=== PATIENT | female | born 1980 | race Caucasian/White ===

== ENCOUNTER → 2017-03-28 | Outpatient (CLI) | payer OTHER ==
--- NOTE | 2017-03-28 08:06 | US ---
EXAMINATION TYPE: US OB <=14 wks transvag DATE OF EXAM: 03/28/2017 COMPARISON: NONE CLINICAL HISTORY: 36-year-old female Z36 Confirm dates. Date of LMP: 01/24/17 Beta HcG (if available): unavailable EXAM PERFORMED: Transvaginal (TV) and Transabdominal (TA) FINDINGS: EXAM MEASUREMENTS: GESTATIONAL AGE / DATING Physician Established: not established Dates by LMP: (9 weeks/0 days) EDC: 10/31/17 Dates by First Scan: no prior scan Dates by Current Scan for: (8 weeks/4 days +/- 5 days) Unable to detect heart tones at this t christopher EDC: 11/03/17 MATERNAL ANATOMY Uterus: 12.8 x 6.6 x 8.5cm with cervical nabothian cysts. Heterogeneous, small cystic areas along the inferior margin of the gestational sac within the endometrium. Also, there is a 1.9 cm hypoechoic ar ea along the right paramedian anterior fundus/body that is intramural and partially subserosal. Right Ovary: 4.2 x 2.7 x 2.2cm Left Ovary: 2.6 x 1.5 x 2.3cm Post CDS / Adnexa: wnl Presence of free fluid: no Presence of corpus luteal cyst: yes, right ovary = 2.4 x 1.9 x 2.3cm GESTATION / SURVEY CRL: 2.0cm (8 weeks/4 days) Yolk Sac (normal less than 6mm): 0.3cm Heart Rate: unable to detect heart tones at this time [employer] NOTES: Unable to detect heart tones at this time. Multiple cystic areas noted withi n endometrium. Hypoechoic area anterior uterus = 2.0 x 1.5 x 1.6cm ?possible fibroid. Probable corpus luteum right ovary. IMPRESSION: 1. Intrauterine with crown rump length placing the gestation at 8 weeks 4 days, smaller as compared to dates by LMP. No heart tones are detected. Findings are worrisome for demise. Karl borate with downtrending beta-hCG. 2. Heterogeneous area inferior to the gestational sac with small cystic changes. Findings likely repr esent sequela of a perigestational bleed. Correlate with beta hCG levels to exclude the less likely p ossibility of partial molar . 3. Incidental intramural and partially subserosal 1.9 cm anterior fibroid.
== END ==
LOC: RADUSWWP 07:01
PROVIDERS: ATTEND Obstetrics & Gynecology
DX: Z36 Encounter for antenatal screening of mother (principal); Z3A.08 8 weeks gestation of pregnancy
CPT/HCPCS: 76801; 76817

== ENCOUNTER → 2017-04-02 | Outpatient (CLI) | payer OTHER ==
[2017-04-02 11:10] LABS: Basophils % (A) 0 %; CHCM 34.3; Eosinophils % (A) 1 %; HCT 40.9 % (34.0-46.0); HDW 2.37; HGB 13.6 gm/dL (11.4-16.0); Luc # (Auto) 0.11; Luc % (Auto) 1; Lymphocytes # (A) 1.2 k/uL (1.0-4.8); Lymphocytes % (A) 15 %; MCH 31.1 pg (25.0-35.0); MCHC 33.2 g/dL (31.0-37.0); MCV 93.7 fL (80.0-100.0); Mean Platelet Volume 7.6; Monocytes # (A) 0.4 k/uL (0-1.0); Monocytes % (A) 5 %; Neutrophils # (A) 6.4 k/uL (1.3-7.7); Neutrophils % (A) 78 %; RBC 4.37 m/uL (3.80-5.40); RDW 13.1 % (11.5-15.5); WBC 8.2 k/uL (3.8-10.6); WBC (Perox) 8.31
== END | disposition home or self-care (01) ==
LOC: LABPAT 10:33
PROVIDERS: ATTEND Obstetrics & Gynecology
DX: Z01.812 Encounter for preprocedural laboratory examination (principal)
CPT/HCPCS: 85025

== ENCOUNTER 2017-04-04 06:04 | Day surgery (SDC) | payer OTHER ==
[2017-04-03 08:49] VITALS: BMI 30.2
--- NOTE | 2017-04-03 12:49 | P.HPOB ---
History of Present Illness H&P Date: 04/03/17 Chief Complaint: Missed This patient is a pleasant 36-year-old 2 para 1 female who initially saw me on March 19 for care. Patient was scheduled for an ultrasound for viability and unfortunately it showed a 8 and half week nonviable consistent with a missed . There is also some questionable areas of cystic findings on the ultrasound which the radiologist stated could have some findings of a molar . She now presents for suction D&C for treatment. Patient has not been having any pain or bleeding. Review of Systems Constitutional: Denies chills, Denies fever Cardiovascular: Denies chest pain, Denies shortness of breath Respiratory: Denies cough Gastrointestinal: Denies abdominal pain, Denies diarrhea, Denies nausea, Denies vomiting Genitourinary: Reports Menstruation: Reports amenorrhea Musculoskeletal: Denies myalgias Past Medical History Past Medical History: Deep Vein Thrombosis (DVT), GERD/Reflux, Pulmonary Embolus (PE) Additional Past Medical History / Comment(s): PE in 2006,IBS History of Any Multi-Drug Resistant Organisms: None Reported Past Surgical History: Cholecystectomy Past Anesthesia/Blood Transfusion Reactions: No Reported Reaction Smoking Status: Former smoker - Past Family History Mother Family Medical History: No Reported History Father Family Medical History: Deep Vein Thrombosis (DVT) Medications and Allergies Allergies Allergy/AdvReac Type Severity Reaction Status Date / Time adhesive tape AdvReac Itching Verified 04/03/17 08:22 codeine AdvReac Rash/Hives Verified 04/03/17 08:23 Exam - Vital Signs Vital signs: Intake and Output 04/02/17 04/03/17 04/03/17 22:59 06:59 14:59 Other: Weight 95.708 kg Patient Weight 04/04/17 06:59 Weight 95.708 kg - OBG Physical Exam Abdomen: bowel sounds normal, no diffuse tenderness, no bruit present, no guarding noted, no hepatomegaly, no splenomegaly, no mass Vulva: both: normal Vagina: normal moisture, no discharge Cervix: no lesion, no discharge Uterus: enlarged (Uterus is approximately 8 weeks size.) Results Transvaginal ultrasound shows an 8-1/2 week intrauterine with no cardiac activity and questionable cystic areas. This is consistent with a missed . Assessment and Plan (1) Missed Narrative/Plan: This is a pleasant 36-year-old 2 para 1 female being half weeks gestation with missed and questionable cystic areas on ultrasound but cannot rule out molar . Patient I discussed options including expectant management versus suction D&C and at this point wishes to proceed with D&C for treatment. Patient does understand the surgery and risks including risks of infection, bleeding, possible uterine perforation. She understands she is at increased risk of bleeding if this were to be a molar . Patient does have a significant past medical history of a pulmonary embolism at 29 weeks with her first . Plan is to do a suction D&C in early ambulation. Because of the rare possibility of a molar I do not think blood thinners are appropriate and this patient . Status: Acute
[~2017-04-04 06:04] MED LIST: DEXAMETHASONE SOD PHOSPHATE 10 MG/ML 1 ML VIAL IV ONE; LIDOCAINE 1% 20 ML VIAL (10MG/ML) FOR IV START INTRADERMA PRN; Pre Op ABX Message 1 EACH MISC MISCELLANE ONE; SCOPOLAMINE 1.5MG/72HR PATCH TRANSDERM ONE
[2017-04-04] MEDS: LACTATED RINGERS 1,000 ML IV SCH ×2 (06:21→06:51)
[2017-04-04] MEDS: ONDANSETRON 4 MG/2 ML VIAL IVP ONE ×2 (06:22→07:48)
[2017-04-04] MEDS ORDERED: LIDOCAINE 1% 20 ML VIAL (10MG/ML) FOR IV START INTRADERMA ONE (06:22)
[2017-04-04] MEDS ORDERED: LIDOCAINE 1% INJ 10MG/ML (20 ML MDV) ONE (06:54)
[2017-04-04] MEDS ORDERED: MIDAZOLAM 2 MG/2 ML VIAL ONE (06:54)
[2017-04-04] MEDS ORDERED: PROPOFOL 10 MG/ML 20 ML VIAL IV ONE (06:54)
[2017-04-04] MEDS ORDERED: SUCCINYLCHOLINE CHLORIDE 100 MG/5 ML SYR IV ONE (06:54)
[2017-04-04] MEDS ORDERED: fentaNYL (PF) 50 MCG/ML 2 ML AMP ONE (06:54)
[2017-04-04] MEDS ORDERED: Rhogam IMMUNE GLOBULIN 1,500 UNIT/1 ML IM ONE (07:27)
--- NOTE | 2017-04-04 07:35 | P.OP ---
Date of Procedure: 04/04/17 Preoperative Diagnosis: 8-1/2 week missed , possible molar Postoperative Diagnosis: Same Procedure(s) Performed: Suction D&C. Implants: Anesthesia: SARAHA Surgeon: Esau Mike Estimated Blood Loss (ml): 500 Urine output (ml): 20 Pathology: other (Uterine contents) Condition: stable Disposition: PACU Indications for Procedure: Please see dictated H&P for intimate details of this patient's admission. Brief summary this is a pleasant 36-year-old 2 para 1 female with estimated gestational age 8-1/2 weeks with a known missed . Ultrasound also showed some cystic areas that had a questionable molar . Patient now presents for D&C for treatment. Patient and I have discussed this surgery in detail including the risks of infection, bleeding, possible uterine perforation. Patient did understand that she is at increased risk of bleeding secondary to the possible molar . Patient has a history of pulmonary embolism in her previous and therefore she understands she is at increased risk of this as well. All the patient's questions are answered and a written consent is obtained. Operative Findings: This patient had a large amount of gestational tissue. She did also have significant bleeding that did resolve at the time the end of the procedure. These findings are suspicious for possible molar . Description of Procedure: This patient is taken to the operating room where she is laid in the supine position. She subsequently undergoes general endotracheal anesthesia without incident. With an adequate level of anesthesia she's placed in the dorsal lithotomy position. She has a vaginal perineal prep and drape. Examination under anesthesia shows a 10 week size uterus in mid position. Bladder is drained at this time for 20 mL of clear urine. I then placed a weighted speculum posterior vagina, and then grabbed the anterior lip of the cervix with an Allis clamp. The cervix is then gently dilated to allow a 9 curved suction curette easily and the uterine cavity. Suction is applied and a large amount of tissue was removed. Multiple passes are made until no further tissue was noted. There is a quite a bit of bleeding with this. A gentle but thorough curettage of all 4 quadrants is done again no further tissue was noted. A final pass of the suction curet is done. Bleeding does subside at this time. At this time I watch her for approximately 5 minutes to ensure hemostasis. No further bleeding is noted. The Allis clamp and weighted speculum were removed. All counts are correct 3. Patient is taken to the recovery room in satisfactory condition. Going to check a beta hCG for reference in the event this is a molar . Patient will also receive RhoGAM because she is Rh-.
[2017-04-04 07:37] VITALS: TEMP 98
[2017-04-04] MEDS: HYDROmorphone 1 MG/ML 1 ML SYRINGE IVP ONE ×4 (07:47→07:58)
[2017-04-04] MEDS: METHYLERGONOVINE 0.2 MG/ML 1 ML AMP IM ONE ×2 (07:48→08:39)
[2017-04-04] MEDS: MEPERIDINE 50 MG/ML SYRINGE IVP ONE ×2 (08:16→08:37)
[2017-04-04] MEDS ORDERED: HYDROcodone/APAP 5-325MG 1 EACH TAB PO ONE (09:24)
[2017-04-04 09:28] VITALS: RESP 16
[2017-04-04 09:59] VITALS: BP 103/61; PULSE 70
== END 2017-04-04 11:11 | disposition home or self-care (01) ==
LOC: OR 06:04
PROVIDERS: ATTEND Obstetrics & Gynecology
DX: O02.1 Missed abortion (principal); K21.9 Gastro-esophageal reflux disease without esophagitis; Z88.5 Allergy status to narcotic agent; Z91.09 Other allergy status, other than to drugs and biological substances
CPT/HCPCS: 86900; 86901; 88305; 86850; 84702; 59820; J2791; J2250; J1100; J2210; J2175; J2405; J2001; J3010; J1170; J0330; J2704

== ENCOUNTER → 2017-04-16 | Outpatient (CLI) | payer OTHER | END | disposition home or self-care (01) | LOC: LABWHC1 15:48 | PROVIDERS: ATTEND Obstetrics & Gynecology | DX: O08.89 Other complications following an ectopic and molar pregnancy (principal) | CPT/HCPCS: 36415; 84702 ==

== ENCOUNTER → 2017-04-23 | Outpatient (CLI) | payer OTHER | END | disposition home or self-care (01) | LOC: LABWHC1 08:11 | PROVIDERS: ATTEND Obstetrics & Gynecology | DX: O08.89 Other complications following an ectopic and molar pregnancy (principal); Z3A.00 Weeks of gestation of pregnancy not specified | CPT/HCPCS: 36415; 84702 ==

== ENCOUNTER → 2017-12-05 | Outpatient (CLI) | payer OTHER ==
[2017-12-05 16:40] LABS: HCT 39.3 % (34.0-46.0); MCH 29.1 pg (25.0-35.0); Mean Platelet Volume 7.4; Platelet Count 237 k/uL (150-450); RBC 4.47 m/uL (3.80-5.40); RDW 13.1 % (11.5-15.5)
--- NOTE | 2017-12-05 16:43 | US ---
EXAMINATION TYPE: Transabdominal DATE OF EXAM: 11/12/17 COMPARISON: NONE CLINICAL HISTORY: Z36 Confirm dates. EXAM PERFORMED: Transabdominal (TA) EXAM MEASUREMENTS: GESTATIONAL AGE / DATING Physician Established: Not yet established Dates by LMP: (8 weeks/4 days) EDC: 07/13/18 Dates by First Scan: No previous this is first scan Dates by Current Scan for: (8 weeks/5 days) EDC: 07/12/18 MATERNAL ANATOMY Uterus: 14.4 x 10.0 x 5.6cm Right Ovary: 2.9 x 1.5 x 1.9cm Left Ovary: 2.2 x 1.2 x 1.1cm Post CDS / Adnexa: wnl Presence of free fluid: wnl Presence of corpus luteal cyst: no Presence of subchorionic bleed: no GESTATION / SURVEY CRL: 2.1 (8 weeks/5 days) Yolk Sac (normal less than 6mm): 3mm Heart Rate: 176 bpm Rhythm: Normal IUP: Viable IUP Date of LMP: 10/06/17 Beta HcG (if available): Not available at this time IMPRESSION: The ultrasound gestational age is 8 weeks 5 days. No complicating process seen.
[2017-12-05 16:50] LABS: Glucose 92 mg/dL (74-99)
[2017-12-06 01:55] LABS: HIV AB P24 Non-Reactive (Non-Reactive); HIV P24 AG Non-Reactive (Non-Reactive)
[2017-12-06 05:12] LABS: Toxoplasma Antibody (IgG) <3.0 IU/mL (<7.2); Toxoplasma Antibody (IgM) <3.0 AU/mL (<8.0)
== END | disposition home or self-care (01) ==
LOC: RADUSWWP 15:55
PROVIDERS: ATTEND Obstetrics & Gynecology
DX: O26.811 Pregnancy related exhaustion and fatigue, first trimester (principal); Z3A.08 8 weeks gestation of pregnancy
CPT/HCPCS: 36415; 76801; 82565; 82947; 85027; 86762; 86777; 86778; 86780; 86850; 86900; 86901; 87340; 87390

== ENCOUNTER → 2018-01-07 | Outpatient (CLI) | payer OTHER ==
[2018-01-08 01:30] LABS: Cardiolipin Ab IgG Interp NEGATIVE (NEGATIVE); Cardiolipin Ab IgM Interp Positive (NEGATIVE); Cardiolipin IgA Antibody 5.2 U/mL; Cardiolipin IgM Antibody 20.8 U/mL
[2018-01-09 10:05] LABS: Anti-Thrombin III Antigen 90 % (80 - 120); Protein S Antigen 68 % (50 - 140)
[2018-01-09 11:41] LABS: APTT 38 Sec(s) (<43); Dilute Russell Viper Venom 37 Sec(s) (<44)
== END | disposition home or self-care (01) ==
LOC: LABWHC1 17:23
PROVIDERS: ATTEND Obstetrics & Gynecology
DX: Z31.430 Encounter of female for testing for genetic disease carrier status for procreative management (principal)
CPT/HCPCS: 36415; 85300; 85301; 85302; 85303; 85305; 85306; 85613; 85730; 86146; 86147

== ENCOUNTER → 2018-04-08 | Outpatient (CLI) | payer OTHER ==
[2018-04-08 09:06] LABS: HCT 35.9 % (34.0-46.0); HGB 11.5 gm/dL (11.4-16.0); MCH 30.8 pg (25.0-35.0); MCHC 32.1 g/dL (31.0-37.0); MCV 95.7 fL (80.0-100.0); Mean Platelet Volume 6.8; Platelet Count 174 k/uL (150-450); RBC 3.75 m/uL (3.80-5.40); RDW 13.7 % (11.5-15.5); WBC 7.1 k/uL (3.8-10.6)
== END | disposition home or self-care (01) ==
LOC: LABWHC1 07:50
PROVIDERS: ATTEND Obstetrics & Gynecology
DX: Z34.82 Encounter for supervision of other normal pregnancy, second trimester (principal)
CPT/HCPCS: 36415; 82950; 85027; 86850

== ENCOUNTER 2018-06-02 10:04 | Outpatient (CLI) | payer OTHER ==
[2018-06-02 11:09] VITALS: BP 125/69; PULSE 98; RESP 18; TEMP 96.4
--- NOTE | 2018-06-03 06:23 | P.MSEPDOC ---
Presenting Problems - Arrival Data Date of Arrival on Unit: 06/02/18 Time of Arrival on Unit: 10:04 Mode of Transport: Ambulatory - Complaint OB-Reason for Admission/Chief Complaint: Decreased Movement, Pain Comment: no movement felt this am, pain on right side, diarreha for last 4 days Medical History - Information : 3 Para: 1 Term: 1 : 0 Abortions: Spontaneous or Elective: 1 Number of Living Children: 1 - Gestational Age Gestational Age by BRIANA (wks/days): 34 Weeks and 1 Days - History Complications: Other Comment: goes to [place] to see mfm for enlarged heart, has appt this wed Review of Systems - Review of Systems Constitutional: No problems Breast: No problems ENT: No problems Cardiovascular: No problems Respiratory: No problems Gastrointestinal: No problems Genitourinary: No problems Musculoskeletal: No problems Neurological: No problems Skin: No problems Vital Signs - Temperature Temperature: 96.4 F Temperature Source: Temporal Artery Scan - Pulse Right Pulse Rate: 98 Pulse Assessment Method: Automatic Cuff - Respirations Respiratory Rate: 18 Oxygen Delivery Method: Room Air O2 Sat by Pulse Oximetry: 99 - Blood Pressure Right Arm Blood Pressure: 125/69 Blood Pressure Mean: 87 Blood Pressure Source: Automatic Cuff Medical Screen Scoring (Pre) - Cervical Exam Dilation: 0 cm = 0 Effacement: Exam Deferred Membranes: Intact - Uterine Contractions Frequency: > 5 minutes apart = 1 Duration: > 40 seconds = 2 Intensity: N/A - Maternal Vital Signs Maternal Temperature: N/A Maternal Blood Pressure: N/A Signs of Preeclampsia: N/A Maternal Respirations: N/A - Pain Assessment Pain Location and Character: Right, Abdomen Pain Scale Used: Numeric (1 - 10) Pain Intensity: 8 Pain Management Goal: 3 Pain Description: *Acute, Sharp Pain Radiation Location: none Pain Frequency: Constant Pain Duration: 2 Pain Duration Units: Days Pain Behavior: Vocalization Pain Aggravating Factors: Standing, Walking - Maternal Trauma Maternal Trauma: N/A - Assessment Baseline FHR: 135 Heart Rate - NICHD Category: Category I (Normal) = 0 NST: Reactive Position: N/A Station: N/A - Total Score Total Score (Pre): 3 - Level of Risk Level of Risk: Low (0-5) Physician Notification (Pre) - Physician Notified Physician Notified Date: 06/02/18 Physician Notified Time: 10:44 Physician/Practitioner Notifed:: Dr. Mike Spoke With: Dr. Mike New Order Received: Yes - Notification Comment Comment: check cervix, if closed discharge pt home Disposition - Disposition OB Disposition: Triage, Discharge to home, Written follow up instructions reviewed Discharge Date: 06/02/18 Discharge Time: 10:55 I agree with the RN Medical Screening Exam: Yes Risk & Benefit of care provided described in d/c instruction: Yes Diagnosis: DECREASED MOVEMENTS, THIRD TRIMESTER, FETUS 1
== END 2018-06-02 10:55 | disposition home or self-care (01) ==
LOC: FBPOP 10:04
PROVIDERS: ATTEND Obstetrics & Gynecology
DX: O36.8131 Decreased fetal movements, third trimester, fetus 1 (principal); Z3A.34 34 weeks gestation of pregnancy
CPT/HCPCS: 59025; G0463; 99213

== ENCOUNTER 2018-06-30 06:00 | Inpatient (IN) | payer OTHER ==
--- NOTE | 2018-06-29 18:40 | P.HPOB ---
History of Present Illness H&P Date: 06/29/18 Chief Complaint: Induction of labor secondary to small for gestational age/ history of PE/ This patient is a pleasant 37-year-old 3 para 1 female estimated date of confinement 07/13/2018 estimated gestational age 38 and one sevenths weeks gestation who is admitted to labor and delivery for two-stage induction of labor per recommendations from maternal- medicine due to small for gestational age, history of pulmonary embolism with previous , and mild cardiac enlargement. Patient's history is such that in her first she developed a pulmonary embolism at 29 weeks. This patient was placed on prophylactic heparin and followed by maternal medicine. Patient's ultrasounds there demonstrated some mild cardiac enlargement and she had multiple ultrasounds. At this point the feeling is that baby's heart is had normal anatomy and function and does need to have a follow-up echocardiogram in a nonemergent fashion. Patient is also had decreased growth and SGA. She most recently was seen by maternal medicine last week and he recommended delivery after 38 weeks. She's had testing also included a normal maternity T 2146 excess and otherwise normal level III ultrasound. Review of Systems Gastrointestinal: Reports heartburn Genitourinary: Reports Menstruation: Reports amenorrhea Past Medical History Additional Past Medical History / Comment(s): Pulmonary embolism in 2006. Patient's first was a spontaneous vaginal delivery. Second was a partial molar . History of Any Multi-Drug Resistant Organisms: None Reported Past Surgical History: Cholecystectomy Additional Past Surgical History / Comment(s): Suction D&C Past Anesthesia/Blood Transfusion Reactions: No Reported Reaction Past Psychological History: No Psychological Hx Reported Smoking Status: Former smoker Past Alcohol Use History: None Reported Past Drug Use History: None Reported Medications and Allergies Home Medications Medication Instructions Recorded Confirmed Type Acetaminophen Tab [Tylenol] 1,000 mg PO Q6HR PRN 06/02/18 06/02/18 History Heparin Sodium,Porcine [Heparin 7,500 unit SQ BID 06/02/18 06/02/18 History Sodium] Melatonin 5 mg PO HS PRN 06/02/18 06/02/18 History Pnv No.95/Ferrous Fum/Folic AC 1 tab PO DAILY 06/02/18 06/02/18 History [ Multivitamin Tablet] Allergies Allergy/AdvReac Type Severity Reaction Status Date / Time adhesive tape AdvReac Itching Verified 06/02/18 10:16 codeine AdvReac Rash/Hives Verified 06/02/18 10:16 Exam - OBG Physical Exam Abdomen: bowel sounds normal, no diffuse tenderness, no bruit present, no guarding noted, no hepatomegaly, no splenomegaly, no mass Vulva: both: normal Vagina: normal moisture, no discharge Cervix: no lesion (Cervix the office is closed and thick.), no discharge Uterus: enlarged (Fundal height is 37 cm) Results Patient's blood work shows she is A-, rubella immune, RPR is nonreactive, HIV is nonreactive, hepatitis B is negative, maternity T 21 was 46 XX, Glucola was normal, group B strep was negative, heart echo as above ( showed mild increase CT ratio of the heart). Patient is a marginal cord insertion. Most recent ultrasound showed the vertex presentation with an estimated weight of 2549 g which is at the 12th percentile. Patient received RhoGAM on April 08. Assessment and Plan Assessment: This patient is a pleasant 37-year-old 3 para 1 female 38 and one sevenths weeks gestation who is admitted to labor and delivery for induction of labor per [facility] recommendations secondary to growth restriction, history of pulmonary embolism in her first , and mild cardiac enlargement. Patient does have an unfavorable cervix and therefore will have a Cervidil placed. Patient did stop her heparin on Saturday evening and therefore we will check coagulation factors. Plan is anticipate vaginal delivery and we'll restart prophylactic anticoagulation after delivery. I will alert the chief medical technologist's as to the cardiac findings however recommendations this time are to have a nonemergent cardiac echo. (1) 38 weeks gestation of Status: Acute Code(s): Z3A.38 - 38 WEEKS GESTATION OF SNOMED Code( s): 38148397 (2) growth restriction Status: Acute Code(s): JED9634 - SNOMED Code(s): 31848969 (3) History of pulmonary embolus (PE) Status: Acute Code(s): Z86.711 - PERSONAL HISTORY OF PULMONARY EMBOLISM SNOMED Code(s): 718013949
[2018-06-30] MEDS ORDERED: BUTORPHANOL 1 MG/ML 1 ML VIAL IV PRN (16:16)
[2018-06-30] MEDS ORDERED: DINOPROSTONE 10 MG INSERT.ER VAGINAL ONE (16:30)
[2018-06-30 17:32] LABS: Basophils % (A) 0 %; Eosinophils # (A) 0.2 k/uL (0-0.7); Eosinophils % (A) 1 %; HCT 36.7 % (34.0-46.0); HGB 12.4 gm/dL (11.4-16.0); Lymphocytes # (A) 1.5 k/uL (1.0-4.8); Lymphocytes % (A) 12 %; MCHC 33.8 g/dL (31.0-37.0); MCV 91.7 fL (80.0-100.0); Mean Platelet Volume 7.1; Monocytes # (A) 0.8 k/uL (0-1.0); Monocytes % (A) 6 %; Neutrophils # (A) 10.4 k/uL (1.3-7.7); Neutrophils % (A) 80 %; Platelet Count 228 k/uL (150-450); RBC 4.01 m/uL (3.80-5.40); RDW 13.3 % (11.5-15.5); WBC 13.1 k/uL (3.8-10.6)
[2018-06-30 17:43] LABS: Prothrombin Time 9.5 sec (9.0-12.0)
[2018-07-01] MEDS ORDERED: CARBOPROST TROMETHAMINE 250 MCG/ML 1 ML AMP IM PRN (05:10)
[2018-07-01] MEDS ORDERED: TERBUTALINE 1 MG/ML VIAL SQ PRN (05:10)
[2018-07-01] MEDS ORDERED: OXYTOCIN 10 UNIT/ML 1 ML VIAL IM PRN (05:10)
[2018-07-01] MEDS ORDERED: LIDOCAINE 0.5% (PF) 5 MG/ML (50 ML SDV) SQ PRN (05:10)
[2018-07-01] MEDS ORDERED: METHYLERGONOVINE 0.2 MG/ML 1 ML AMP IM PRN (05:10)
[2018-07-01] MEDS: LACTATED RINGERS 1,000 ML IV SCH ×3 (06:10→13:43)
[2018-07-01] MEDS: OXYTOCIN 20 UNITS/1000 ML NS 1,000 ML IV SCH ×2 (06:10→13:49)
[2018-07-01 07:28] LABS: Basophils % (A) 0 %; Eosinophils # (A) 0.1 k/uL (0-0.7); Eosinophils % (A) 1 %; HCT 37.8 % (34.0-46.0); HGB 12.7 gm/dL (11.4-16.0); Lymphocytes # (A) 1.3 k/uL (1.0-4.8); Lymphocytes % (A) 12 %; MCH 30.9 pg (25.0-35.0); MCHC 33.6 g/dL (31.0-37.0); Monocytes # (A) 0.7 k/uL (0-1.0); Monocytes % (A) 6 %; Neutrophils # (A) 8.4 k/uL (1.3-7.7); Neutrophils % (A) 79 %; Platelet Count 219 k/uL (150-450); RDW 13.2 % (11.5-15.5); WBC 10.7 k/uL (3.8-10.6)
[2018-07-01] MEDS ORDERED: SODIUM CHLORIDE 0.9% 100 ML BAG ONE (11:31)
[2018-07-01] MEDS ORDERED: ROPIVACAINE 5MG/ML 20ML VIAL ONE (11:31)
[2018-07-01] MEDS ORDERED: fentaNYL (PF) 50 MCG/ML 5 ML AMP ONE (11:31)
[2018-07-01] MEDS ORDERED: ZOLPIDEM 5 MG TAB PO PRN (14:10)
[2018-07-01] MEDS ORDERED: LANOLIN CREAM 5 GM TUBE TOPICAL PRN (14:10)
[2018-07-01] MEDS ORDERED: HYDROCORTISONE 2.5% RECTAL CREAM 30 GM TUBE RECTAL PRN (14:10)
[2018-07-01] MEDS ORDERED: diphenhydrAMINE 25 MG CAP PO PRN (14:10)
[2018-07-01] MEDS ORDERED: OXYTOCIN 20 UNITS/1000 ML NS 1,000 ML IV SCH (14:10)
[2018-07-01] MEDS ORDERED: WITCH HAZEL 1 EACH MED..PAD TOPICAL PRN (14:10)
[2018-07-01] MEDS ORDERED: BENZOCAINE/MENTHOL SPRAY 1 GM/SPRAY AEROSOL TOPICAL PRN (14:10)
[2018-07-01] MEDS ORDERED: BISACODYL 10 MG SUPP RECTAL PRN (14:10)
[2018-07-01] MEDS ORDERED: diphenhydrAMINE 50 MG/ML 1 ML VIAL IVP PRN (14:10)
[2018-07-01] MEDS ORDERED: SIMETHICONE 80 MG CHEWABLE PO PRN (14:10)
[2018-07-01] MEDS ORDERED: Rhogam IMMUNE GLOBULIN 1,500 UNIT/1 ML IM ONE (14:10)
[2018-07-01] MEDS: SENNOSIDES-DOCUSATE SODIUM 1 EACH TAB PO SCH (16:00)
--- NOTE | 2018-07-01 17:51 | P.PROBDLV ---
Vaginal Delivery Note - . Vaginal Delivery Note: Normal vaginal delivery viable female Apgars 8 and 8 delivery time is 1318 hrs. Please see dictated H&P for intimate details of this patient's admission. In brief summary this is a pleasant 38-year-old 3 para 1 female 38-2/7 weeks gestation admitted to labor and delivery for two-stage induction of labor secondary to Bernie restriction, mild cardiac enlargement and history of pulmonary embolism with previous . Patient has Cervidil placed last evening is 2 cm dilated. She is artificial rupture membranes this morning for clear fluid and labor is induced with Pitocin per protocol. Patient's labor does progress she gets an epidural for pain control. She quickly thereafter goes to complete. Patient pushes the head to the perineum and the posterior perineum was supported. Then have controlled delivery of infant's head over the intact perineum. Mouth and nares are bulb suctioned. There is a tight nuchal cord which is reduced. We then have spontaneous delivery the anterior and posterior shoulder and rest this infant's body. This is a vigorous viable female infant Apgars are 8 and 8 delivery time is 1318 hrs. After delivery of the infant the cord was allowed to quit pulsating is then doubly clamped and cut. It appears to be trivascular. Cord blood is obtained for Rh status. The placenta is then spontaneously delivered intact. Has a marginal cord insertion. Inspection of perineum shows no lacerations and no repairs. Estimate blood loss is 100 mL. There are no complications. All counts are correct 3. Infant and mother stable delivery room.
[2018-07-01] MEDS: IBUPROFEN 600 MG TAB PO PRN (19:54)
[2018-07-01] MEDS: HEPARIN SODIUM,PORCINE 5,000 UNIT/ML 1 ML VIAL SQ SCH (21:19)
[2018-07-02] MEDS: ACETAMINOPHEN TAB 325 MG TAB PO PRN ×3 (00:36→16:34)
[2018-07-02] MEDS: SENNOSIDES-DOCUSATE SODIUM 1 EACH TAB PO SCH ×3 (00:37→20:55)
[2018-07-02] MEDS: IBUPROFEN 600 MG TAB PO PRN ×3 (04:49→20:54)
--- NOTE | 2018-07-02 06:39 | P.PNOBGVD ---
Subjective - Subjective Patient reports: Reports appetite normal, Reports voiding normally, Reports pain well controlled, Reports ambulating normally : doing well Objective - Latest Vital Signs Latest vital signs: Vital Signs Temp Pulse Resp BP Pulse Ox 07/02/18 00:00 97.6 F 74 18 121/61 98 07/01/18 20:00 98.3 F 94 16 104/67 07/01/18 15:31 84 18 105/58 07/01/18 15:01 86 18 112/57 07/01/18 14:31 97.2 F L 88 18 122/70 07/01/18 14:16 92 18 115/66 07/01/18 14:01 99 16 112/59 07/01/18 13:56 97.6 F 91 16 120/61 Intake and Output 07/01/18 07/01/18 07/02/18 14:59 22:59 06:59 Intake Total 56.35 Output Total 100 Balance -43.65 Intake: Intake, IV Titration 56.35 Amount Oxytocin 20 Units/1000 ml 56.35 Ns 1,000 ml @ 1 MILLIUNIT/MIN 3 mls/hr IV .Q24H PÉREZ Rx#:[id number] Output: Estimated Blood Loss 100 Other: # Voids 1 1 1 - Exam Lungs: bilateral: normal Chest: Normal S1, Normal S2 Extremities: Present: normal Abdomen: Present: normal appearance, soft Uterus: Present: normal, firm - Labs Labs: Abnormal Lab Results - Last 24 Hours (Table) 07/01/18 Range/Units 06:46 WBC 10.7 H (3.8-10.6) k/uL Neutrophils # 8.4 H (1.3-7.7) k/uL Assessment and Plan Assessment: day #1. Patient is resting without complaints. Vital signs are stable she is afebrile. She's having normal lochia. I restarted her subcutaneous heparin last evening. My impression is a normal course. Plan is to continue care and consider discharge home today or tomorrow. (1) 38 weeks gestation of Current Visit: No Status: Acute Code(s): Z3A.38 - 38 WEEKS GESTATION OF SNOMED Code(s): 24224872 (2) growth restriction Current Visit: No Status: Acute Code(s): [id number] - SNOMED Code(s): 34606254 (3) History of pulmonary embolus (PE) Current Visit: No Status: Acute Code(s): Z86.711 - PERSONAL HISTORY OF PULMONARY EMBOLISM SNOMED Code(s): 032426355
--- NOTE | 2018-07-02 06:45 | P.DS ---
Providers Date of admission: 06/30/18 16:04 Expected date of discharge: 07/02/18 Attending physician: Esau Mike Primary care physician: Stated None - Discharge Diagnosis(es) (1) 38 weeks gestation of Current Visit: No Status: Acute (2) growth restriction Current Visit: No Status: Acute (3) History of pulmonary embolus (PE) Current Visit: No Status: Acute Hospital Course: Please see dictated H&P for intimate details of this patient's admission. Brief summary this pleasant 38-year-old female admitted to labor and delivery for two-stage induction of labor secondary to growth restriction, cardiomegaly, history of pulmonary embolism with previous . Patient is admitted she is uncomplicated induction of labor goes on to have a vaginal delivery viable female . Please see dictated delivery note. day 1 she continues to well was felt to be stable for discharge home follow up with me in 6 weeks. She will continued on subcutaneous heparin for prophylaxis. Procedures: Two-stage induction of labor and normal vaginal delivery Patient Condition at Discharge: Good Plan - Discharge Summary Discharge Rx Participant: No New Discharge Prescriptions: New Ibuprofen [Motrin] 600 mg PO Q6HR PRN #40 tab PRN Reason: Mild Pain Or Fever >= 100.5 No Action Pnv No.95/Ferrous Fum/Folic AC [ Multivitamin Tablet] 1 tab PO DAILY Melatonin 5 mg PO HS PRN PRN Reason: Insomnia Heparin Sodium,Porcine [Heparin Sodium] 7,500 unit SQ BID Acetaminophen Tab [Tylenol] 1,000 mg PO Q6HR PRN PRN Reason: pain Discharge Medication List Acetaminophen Tab [Tylenol] 1,000 mg PO Q6HR PRN 06/02/18 [History] Heparin Sodium,Porcine [Heparin Sodium] 7,500 unit SQ BID 06/02/18 [History] Melatonin 5 mg PO HS PRN 06/02/18 [History] Pnv No.95/Ferrous Fum/Folic AC [ Multivitamin Tablet] 1 tab PO DAILY [History] Ibuprofen [Motrin] 600 mg PO Q6HR PRN #40 tab 07/02/18 [Rx] Follow up Appointment(s)/Referral(s): Esau Mike MD [STAFF PHYSICIAN] - 08/14/18 11:15 am Patient Instructions/Handouts: Vaginal Delivery (DC) Activity/Diet/Wound Care/Special Instructions: No intercourse or anything per vagina for 6 weeks. Please call if any fever, chills, excessive vaginal bleeding, and/or abdominal pain. Continue subcutaneous heparin 5000 units twice a day as instructed.
[2018-07-02] MEDS: HEPARIN SODIUM,PORCINE 5,000 UNIT/ML 1 ML VIAL SQ SCH ×2 (09:07→20:55)
[2018-07-03] MEDS: HEPARIN SODIUM,PORCINE 5,000 UNIT/ML 1 ML VIAL SQ SCH (08:13)
[2018-07-03] MEDS: IBUPROFEN 600 MG TAB PO PRN ×2 (08:13→15:10)
[2018-07-03] MEDS: SENNOSIDES-DOCUSATE SODIUM 1 EACH TAB PO SCH (08:14)
[2018-07-03 09:13] VITALS: BP 113/60; PULSE 77; RESP 16; TEMP 97.9
[2018-07-03] MEDS: ACETAMINOPHEN TAB 325 MG TAB PO PRN (12:48)
== END 2018-07-03 15:50 | disposition home or self-care (01) | DRG 807 ==
LOC: 4FBP 16:04
PROVIDERS: ADMIT Obstetrics & Gynecology; ATTEND Obstetrics & Gynecology
PROC: 10E0XZZ Delivery of Products of Conception, External Approach (ICD-10-PCS; principal; 2018-07-01)
PROC: 00HU33Z Insertion of Infusion Device into Spinal Canal, Percutaneous Approach (ICD-10-PCS; 2018-07-01)
PROC: 3E0R3BZ Introduction of Anesthetic Agent into Spinal Canal, Percutaneous Approach (ICD-10-PCS; 2018-07-01)
PROC: 3E0P7VZ Introduction of Hormone into Female Reproductive, Via Natural or Artificial Opening (ICD-10-PCS; 2018-07-01)
PROC: 10907ZC Drainage of Amniotic Fluid, Therapeutic from Products of Conception, Via Natural or Artificial Opening (ICD-10-PCS; 2018-07-01)
DX: O36.5930 Maternal care for other known or suspected poor fetal growth, third trimester, not applicable or unspecified (principal); O69.1XX0 Labor and delivery complicated by cord around neck, with compression, not applicable or unspecified; O35.8XX0 Maternal care for other (suspected) fetal abnormality and damage, not applicable or unspecified; O99.89 Other specified diseases and conditions complicating pregnancy, childbirth and the puerperium; O99.62 Diseases of the digestive system complicating childbirth; K21.9 Gastro-esophageal reflux disease without esophagitis; M51.26 Other intervertebral disc displacement, lumbar region; Z37.0 Single live birth; Z3A.38 38 weeks gestation of pregnancy; Z86.711 Personal history of pulmonary embolism; Z87.891 Personal history of nicotine dependence; Z90.49 Acquired absence of other specified parts of digestive tract; Z88.5 Allergy status to narcotic agent; Z91.048 Other nonmedicinal substance allergy status
CPT/HCPCS: 85025; 85610; 85730; 86850; 86900; 86901; 88307

== ENCOUNTER → 2020-04-12 | Outpatient (CLI) | payer OTHER ==
--- NOTE | 2020-04-12 12:08 | XR ---
EXAMINATION TYPE: XR lumbosacral spine min 4V DATE OF EXAM: 04/12/2020 CLINICAL HISTORY: Low back pain for months. TECHNIQUE: Frontal, lateral, and oblique images of the lumbar spine are obtained. COMPARISON: Lumbar spine x-ray November 05, 2013 FINDINGS: There are 5 lumbar type vertebral bodies redemonstrated. Persistent spina bifida defect S1 level. Persistent slight scoliotic curvature at the lumbosacral junction. Vertebral body heights are maintained. Mild to moderate disc space narrowing L4-L5 level slightly more prominent from prior [place] dy. Oblique images are felt within normal limits. Overlying soft tissue is unremarkable. Some mild to minimal multilevel anterior and lateral spurring is present currently. IMPRESSION: As above.
--- NOTE | 2020-04-12 12:10 | XR ---
EXAMINATION TYPE: XR thoracic spine 2V DATE OF EXAM: 04/12/2020 CLINICAL HISTORY: Mid back pain for months. TECHNIQUE: Frontal, lateral, and swimmer's view of thoracic spine are obtained. COMPARISON: CT chest 2013. FINDINGS: Thoracic spine redemonstrates S-shaped scoliotic curvature without evidence of acute fractu re or dislocation. Vertebral body heights and disc space heights are preserved. Visualized ribs are unremarkable. Visualized ribs are intact bilaterally. Mild multilevel anterior spurring. Scleroti c lesion involving the inferior T9 vertebra or endplate is redemonstrated presumed benign. Cholecyste ctomy clips are redemonstrated. IMPRESSION: As above.
== END | disposition home or self-care (01) ==
LOC: RADXRMAIN 11:21
PROVIDERS: ATTEND Physician Assistant
DX: M48.061 Spinal stenosis, lumbar region without neurogenic claudication (principal)
CPT/HCPCS: 72070; 72110

== ENCOUNTER → 2020-06-03 | Outpatient (CLI) | payer OTHER ==
[2020-06-03 11:28] LABS: HCT 38.9 % (34.0-46.0); MCHC 33.5 g/dL (31.0-37.0); MCV 92.3 fL (80.0-100.0); Mean Platelet Volume 7.5; Platelet Count 213 k/uL (150-450); RBC 4.21 m/uL (3.80-5.40); RDW 12.7 % (11.5-15.5); WBC 8.7 k/uL (3.8-10.6)
[2020-06-03 11:44] LABS: African American GFR (CKD) >90 (>60 ml/min/1.73 sqM); Glucose 96 mg/dL (74-99); Non-African American GFR(CKD) >90 (>60 ml/min/1.73 sqM)
--- NOTE | 2020-06-03 12:08 | US ---
EXAMINATION TYPE: Ultrasound OB <= 14 week fetus DATE OF EXAM: 06/03/2020 11:07 AM COMPARISON: NONE CLINICAL HISTORY: 39-year-old female O09.90, Z36.87. confirm dates EXAM PERFORMED: Transabdominal (TA) FINDINGS: EXAM MEASUREMENTS: GESTATIONAL AGE / DATING Physician Established: Not yet established Dates by LMP: (10 weeks/3 days) EDC: 12/27/20 Dates by First Scan: No previous this is first scan Dates by Current Scan for: (10 weeks/5 days) EDC: 12/25/20 MATERNAL ANATOMY Uterus: 14.7 x 6.5 x 10.8cm Right Ovary: 2.9 x 1.2 x 1.8cm Left Ovary: 3.5 x 1.7 x 3.0cm Post CDS / Adnexa: appears wnl Presence of free fluid: no Presence of corpus luteal cyst: hypoechoic area left ovary = 2.4 x 1.6 x 1.8cm GESTATION / SURVEY CRL: 3.7cm (10 weeks/5 days) Yolk Sac (normal less than 6mm): 4.0mm Heart Rate: 165 bpm Rhythm: Normal IUP: Viable IUP Date of LMP: 03/22/20 Beta HcG (if available): Not available at this time IMPRESSION: 1. Single live intrauterine with estimated gestational age of 10 weeks 3 days by LMP. Curre nt ultrasound biometry is concordant (10 weeks 5 days). 2. A 2.4 cm left ovarian corpus luteum. 3. Complete survey recommended at 18-20 weeks.
[2020-06-03 16:37] LABS: Hepatitis B Surface Antigen Non-Reactive (Non-Reactive)
[2020-06-03 16:48] LABS: HIV 2 AB Non-Reactive (Non-Reactive); HIV AB P24 Non-Reactive (Non-Reactive); HIV P24 AG Non-Reactive (Non-Reactive)
== END | disposition home or self-care (01) ==
LOC: RADUSWWP 10:33
PROVIDERS: ATTEND Obstetrics & Gynecology
DX: O09.91 Supervision of high risk pregnancy, unspecified, first trimester (principal); Z3A.10 10 weeks gestation of pregnancy
CPT/HCPCS: 76801; 82565; 82947; 85027; 86762; 86780; 86850; 86900; 86901; 87340; 87390

== ENCOUNTER 2020-11-17 11:19 | Outpatient (CLI) | payer OTHER ==
[2020-11-17 12:16] VITALS: BP 111/73; PULSE 108; RESP 16; TEMP 97.3
--- NOTE | 2020-11-19 08:21 | P.MSEPDOC ---
Presenting Problems - Arrival Data Date of Arrival on Unit: 11/17/20 Time of Arrival on Unit: 11:19 Mode of Transport: Wheelchair - Complaint OB-Reason for Admission/Chief Complaint: NST Medical History - Gestational Age Gestational Age by BRIANA (wks/days): 34 Weeks and 2 Days Review of Systems - Review of Systems Constitutional: No problems Breast: No problems ENT: No problems Cardiovascular: No problems Respiratory: No problems Gastrointestinal: No problems Genitourinary: No problems Musculoskeletal: No problems Neurological: No problems Skin: No problems Vital Signs - Temperature Temperature: 97.3 F Temperature Source: Temporal Artery Scan - Pulse Left Pulse Rate: 108 Pulse Assessment Method: Automatic Cuff - Respirations Respiratory Rate: 16 Oxygen Delivery Method: Room Air O2 Sat by Pulse Oximetry: 95 - Blood Pressure Left Arm Blood Pressure: 111/73 Blood Pressure Mean: 85 Blood Pressure Source: Automatic Cuff Medical Screen Scoring (Pre) - Cervical Exam Dilation: Exam Deferred Effacement: Exam Deferred Membranes: Intact - Uterine Contractions Frequency: N/A Duration: N/A Intensity: N/A - Maternal Vital Signs Maternal Temperature: N/A Maternal Blood Pressure: N/A Signs of Preeclampsia: N/A Maternal Respirations: N/A - Maternal Trauma Maternal Trauma: N/A - Assessment - Baby A Baseline FHR: 135 Heart Rate - NICHD Category: Category I (Normal) = 0 NST: Reactive Position: N/A Station: N/A - Total Score - Baby A Total Score - Baby A: 0 - Total Score - Baby B Total Score - Baby B: 0 - Total Score - Baby C Total Score - Baby C: 0 - Level of Risk - Baby A Level of Risk - Baby A: Low (0-5) - Level of Risk - Baby B Level of Risk - Baby B: Low (0-5) - Level of Risk - Baby C Level of Risk - Baby C: Low (0-5) Physician Notification (Pre) - Physician Notified Physician Notified Date: 11/17/20 Physician Notified Time: 11:55 New Order Received: Yes (discharge) - Notification Comment Comment: Pt to triage with order from Dr Mike Disposition - Disposition OB Disposition: Discharge to home Discharge Date: 11/17/20 Discharge Time: 12:00 I agree with the RN Medical Screening Exam: Yes Case reviewed; plan agreed upon as documented in EMR&OBIX.: Yes Diagnosis: SUPERVISION OF ELDERLY MULTIGRAVIDA, THIRD TRIMESTER
== END 2020-11-17 12:00 | disposition home or self-care (01) ==
LOC: FBPOP 11:19
PROVIDERS: ATTEND Obstetrics & Gynecology
DX: O09.523 Supervision of elderly multigravida, third trimester (principal); Z3A.34 34 weeks gestation of pregnancy
CPT/HCPCS: 59025

== ENCOUNTER 2020-11-19 20:02 | Emergency (ER) | payer OTHER ==
[2020-11-19] MEDS ORDERED: SODIUM CHLORIDE 0.9% 1,000 ML IV STA ×2 (20:54→22:45)
--- NOTE | 2020-11-19 21:13 | ED ---
General Adult HPI - General Chief complaint: Shortness of Breath Stated complaint: Covid+, 35 weeks , symptoms worsening Time Seen by Provider: 11/19/20 20:29 Source: patient, RN notes reviewed Mode of arrival: ambulatory Limitations: no limitations - History of Present Illness Initial comments: Patient is a 40-year-old female that presents to the emergency department status post Covid-positive complaining of increased shortness of breath. She notes that she is 34-1/2 weeks . She stated that she hasn't really keep any fluids or food down due to being nauseous. Patient was sitting up in bed with a rapid respiratory rate but no accessory muscle use. She denied any fever or muscle aches. She stated that her cough is progressively got worse which is causing her chest tighten up when she does cough. He was sitting up in bed in mild distress but no pain during the exam interview. She denied chest pain headache constipation fever fatigue chills. - Related Data Home Medications Medication Instructions Recorded Confirmed Acetaminophen Tab [Tylenol] 1,000 mg PO Q6HR PRN 06/02/18 11/17/20 Pnv No.95/Ferrous Fum/Folic AC 1 tab PO DAILY 06/02/18 11/17/20 [ Multivitamin Tablet] Enoxaparin [Lovenox] 40 mg SQ DAILY 11/17/20 11/17/20 Omeprazole [PriLOSEC] 10 mg PO BID 11/17/20 11/17/20 Allergies Allergy/AdvReac Type Severity Reaction Status Date / Time adhesive tape AdvReac Itching Verified 11/19/20 20:25 codeine AdvReac Rash/Hives Verified 11/19/20 20:25 Review of Systems ROS Statement: Those systems with pertinent positive or pertinent negative responses have been documented in the HPI. ROS Other: All systems not noted in ROS Statement are negative. Past Medical History Past Medical History: Pulmonary Embolus (PE) Additional Past Medical History / Comment(s): Pulmonary embolism in 2006. P atient's first was a spontaneous vaginal delivery. Second was a partial molar . History of Any Multi-Drug Resistant Organisms: None Reported Past Surgical History: Cholecystectomy Additional Past Surgical History / Comment(s): Suction D&C Past Anesthesia/Blood Transfusion Reactions: No Reported Reaction Past Psychological History: Anxiety Smoking Status: Never smoker Past Alcohol Use History: None Reported Past Drug Use History: None Reported - Past Family History Mother Family Medical History: Asthma, Hypertension General Exam Limitations: no limitations General appearance: alert, in no apparent distress, obese (34-1/2 weeks ) Head exam: Present: atraumatic, normocephalic, normal inspection Eye exam: Present: normal appearance, PERRL, EOMI. Absent: scleral icterus, conjunctival injection, periorbital swelling Neck exam: Present: normal inspection. Absent: tenderness, meningismus, lymphadenopathy Respiratory exam: Present: normal lung sounds bilaterally. Absent: respiratory distress, wheezes, rales, rhonchi, stridor Cardiovascular Exam: Present: regular rate, normal rhythm, normal heart sounds. Absent: systolic murmur, diastolic murmur, rubs, gallop, clicks GI/Abdominal exam: Present: soft, normal bowel sounds. Absent: distended, tenderness, guarding, rebound, rigid Extremities exam: Present: normal inspection, full ROM, normal capillary refill. Absent: tenderness, pedal edema, joint swelling, calf tenderness Neurological exam: Present: alert, oriented X3, CN II-XII intact Psychiatric exam: Present: normal affect, normal mood Skin exam: Present: warm, dry, intact, normal color. Absent: rash Course Vital Signs 11/19/20 11/19/20 11/19/20 20:19 21:00 21:43 Temperature 98.9 F Pulse Rate 119 H 118 H Pulse Rate [ 130 H Overlock Waistline Joiner ] Respiratory 26 H 23 24 Rate Blood Pressure 114/71 O2 Sat by Pulse 97 98 Oximetry 11/19/20 11/20/20 11/20/20 23:47 00:00 02:22 Temperature 98 F Pulse Rate 104 H 100 84 Pulse Rate [ Overlock Waistline Joiner ] Respiratory 22 20 18 Rate Blood Pressure 118/78 124/70 O2 Sat by Pulse 95 95 98 Oximetry EKG Findings - EKG Comments: EKG Findings:: Ventricular rate 131 bpm, AZ interval 130 ms, QRS duration 82 ms, QT/QTC 306/451 ms, PRT axes 54/59/42. Sinus tachycardia, otherwise normal ECG. Medical Decision Making - Medical Decision Making 40-year-old female that is 34-1/2 weeks that is Covid-positive complaining increased shortness of breath. Labs, chest x-ray, EKG, 1 L normal saline ordered. Patient was informed that she does meet criteria for monoclonal antibody ther apy, pharmacy was consult good to see if it was safe during to which he replied the data reports no adverse reactions as of yet. Patient wants to consult the on-call [employer] [employer] to get their opinion before starting it. But they say that she wants to go through with it. Dr. Paige was consult that and agreed with the pharmacist and stated that if the patient is having issue she should do the monoclonal antibiotic therapy but wanted emphasize that with any medication there is always the chance that there is an adverse reaction. Patient was relayed this information and decided that she wants to do the IV infusion therapy due to feeling as if she is getting worse. Labs show dehydration. Pharmacy was concerned about heart tones and wants to recheck after some fluids ran before starting the IV infusion. Case discussed with Dr. Moreno. - Lab Data Result diagrams: 11/19/20 21:06 11/19/20 21:06 Lab Results 11/19/20 11/19/20 11/19/20 Range/Units 21:06 21:06 21:06 WBC 7.1 (3.8-10.6) k/uL RBC 4.75 (3.80-5.40) m/uL Hgb 14.6 (11.4-16.0) gm/dL Hct 42.3 (34.0-46.0) % MCV 88.9 (80.0-100.0) fL MCH 30.7 (25.0-35.0) pg MCHC 34.5 (31.0-37.0) g/dL RDW 14.2 (11.5-15.5) % Plt Count 167 (150-450) k/uL MPV 7.8 Neutrophils % 81 % Lymphocytes % 12 % Monocytes % 5 % Eosinophils % 1 % Basophils % 0 % Neutrophils # 5.7 (1.3-7.7) k/uL Lymphocytes # 0.9 L (1.0-4.8) k/uL Monocytes # 0.4 (0-1.0) k/uL Eosinophils # 0.0 (0-0.7) k/uL Basophils # 0.0 (0-0.2) k/uL PT 9.5 (9.0-12.0) sec INR 0.9 (<1.2) APTT 23.7 (22.0-30.0) sec Sodium 133 L (137-145) mmol/L Potassium 3.7 (3.5-5.1) mmol/L Chloride 102 (98-107) mmol/L Carbon Dioxide 18 L (22-30) mmol/L Anion Gap 13 mmol/L BUN 8 (7-17) mg/dL Creatinine 0.42 L (0.52-1.04) mg/dL Est GFR (CKD-EPI)AfAm >90 (>60 ml/min/1.73 sqM) Est GFR (CKD-EPI)NonAf >90 (>60 ml/min/1.73 sqM) Glucose 85 (74-99) mg/dL Calcium 9.1 (8.4-10.2) mg/dL Total Bilirubin 1.0 (0.2-1.3) mg/dL AST 57 H (14-36) U/L ALT 33 (4-34) U/L Alkaline Phosphatase 219 H (38-126) U/L Troponin I (0.000-0.034) ng/mL Total Protein 6.7 (6.3-8.2) g/dL Albumin 3.8 (3.5-5.0) g/dL Urine Color Urine Appearance (Clear) Urine pH (5.0-8.0) Ur Specific [place] (1.001-1.035) Urine Protein (Negative) Urine Glucose (UA) (Negative) Urine Ketones (Negative) Urine Blood (Negative) Urine Nitrite (Negative) Urine Bilirubin (Negative) Urine Urobilinogen (<2.0) mg/dL Ur Leukocyte Esterase (Negative) Urine RBC (0-5) /hpf Urine WBC (0-5) /hpf Ur Squamous Epith Cells (0-4) /hpf Urine Bacteria (None) /hpf Urine Mucus (None) /hpf 11/19/20 11/19/20 Range/Units 21:06 21:09 WBC (3.8-10.6) k/uL RBC (3.80-5.40) m/uL Hgb (11.4-16.0) gm/dL Hct (34.0-46.0) % MCV (80.0-100.0) fL MCH (25.0-35.0) pg MCHC (31.0-37.0) g/dL RDW (11.5-15.5) % Plt Count (150-450) k/uL MPV Neutrophils % % Lymphocytes % % Monocytes % % Eosinophils % % Basophils % % Neutrophils # (1.3-7.7) k/uL Lymphocytes # (1.0-4.8) k/uL Monocytes # (0-1.0) k/uL Eosinophils # (0-0.7) k/uL Basophils # (0-0.2) k/uL PT (9.0-12.0) sec INR (<1.2) APTT (22.0-30.0) sec Sodium (137-145) mmol/L Potassium (3.5-5.1) mmol/L Chloride (98-107) mmol/L Carbon Dioxide (22-30) mmol/L Anion Gap mmol/L BUN (7-17) mg/dL Creatinine (0.52-1.04) mg/dL Est GFR (CKD-EPI)AfAm (>60 ml/min/1.73 sqM) Est GFR (CKD-EPI)NonAf (>60 ml/min/1.73 sqM) Glucose (74-99) mg/dL Calcium (8.4-10.2) mg/dL Total Bilirubin (0.2-1.3) mg/dL AST (14-36) U/L ALT (4-34) U/L Alkaline Phosphatase (38-126) U/L Troponin I <0.012 (0.000-0.034) ng/mL Total Protein (6.3-8.2) g/dL Albumin (3.5-5.0) g/dL Urine Color Dark Yellow Urine Appearance Turbid H (Clear) Urine pH 6.5 (5.0-8.0) Ur Specific [place] 1.025 (1.001-1.035) Urine Protein 2+ H (Negative) Urine Glucose (UA) Negative (Negative) Urine Ketones 4+ H (Negative) Urine Blood Small H (Negative) Urine Nitrite Negative (Negative) Urine Bilirubin 1+ H (Negative) Urine Urobilinogen >12.0 (<2.0) mg/dL Ur Leukocyte Esterase Large H (Negative) Urine RBC 19 H (0-5) /hpf Urine WBC 9 H (0-5) /hpf Ur Squamous Epith Cells 93 H (0-4) /hpf Urine Bacteria Rare H (None) /hpf Urine Mucus Moderate H (None) /hpf - EKG Data -: EKG Interpreted by Me EKG shows normal: sinus rhythm Rate: tachycardia EKG Comments: Ventricular rate 131 bpm, AZ interval 130 ms, QRS duration 82 ms, QT/QTC 306/451 ms, PRT axes 54/59/42. Sinus tachycardia, otherwise normal ECG. - Radiology Data Radiology results: report reviewed, image reviewed Chest x-ray: Bibasilar opacities, concerning for infiltrates. Disposition Clinical Impression: COVID-19 Disposition: HOME SELF-CARE Condition: Stable Is patient prescribed a controlled substance at d/c from ED?: No Referrals: Tremayne Mendiola MD [Primary Care Provider] - 1-2 days Time of Disposition: 14:06
[2020-11-19 21:26] LABS: Basophils % (A) 0 %; Eosinophils % (A) 1 %; HCT 42.3 % (34.0-46.0); HGB 14.6 gm/dL (11.4-16.0); Lymphocytes # (A) 0.9 k/uL (1.0-4.8); Lymphocytes % (A) 12 %; MCH 30.7 pg (25.0-35.0); MCHC 34.5 g/dL (31.0-37.0); MCV 88.9 fL (80.0-100.0); Mean Platelet Volume 7.8; Monocytes # (A) 0.4 k/uL (0-1.0); Monocytes % (A) 5 %; Neutrophils # (A) 5.7 k/uL (1.3-7.7); Neutrophils % (A) 81 %; Platelet Count 167 k/uL (150-450); RBC 4.75 m/uL (3.80-5.40); RDW 14.2 % (11.5-15.5); WBC 7.1 k/uL (3.8-10.6)
[2020-11-19] MEDS ORDERED: METOCLOPRAMIDE 5 MG/ML 2 ML VIAL IVP STA (21:28)
[2020-11-19] MEDS ORDERED: ACETAMINOPHEN TAB 500 MG TAB PO STA (21:28)
[2020-11-19 21:30] LABS: Appearance,Urine Turbid (Clear); Bacteria,Urine Rare /hpf; Bilirubin,Urine 1+ (Negative); Blood,Urine Small (Negative); Color,Urine Dark Yellow; Glucose,Urine (UA) Negative (Negative); Ketones,Urine 4+ (Negative); Leukocyte Esterase,Urine Large (Negative); Mucus,Urine Moderate /hpf; Nitrite,Urine Negative (Negative); PH, Urine 6.5 (5.0-8.0); Protein,Urine 2+ (Negative); RBC,Urine 19 /hpf (0-5); Specific Gravity,Urine 1.025 (1.001-1.035); Squamous Epithelial Cell,Urine 93 /hpf (0-4); Urobilinogen,Urine >12.0 mg/dL (<2.0); WBC,Urine 9 /hpf (0-5)
[2020-11-19 21:40] LABS: INR 0.9 (<1.2); Partial Thromboplastin Time 23.7 sec (22.0-30.0); Prothrombin Time 9.5 sec (9.0-12.0)
[2020-11-19 21:41] LABS: ALT 33 U/L (4-34); AST 57 U/L (14-36); African American GFR (CKD) >90 (>60 ml/min/1.73 sqM); Albumin 3.8 g/dL (3.5-5.0); Alkaline Phosphatase 219 U/L (38-126); Anion Gap 13 mmol/L; Blood Urea Nitrogen 8 mg/dL (7-17); Calcium 9.1 mg/dL (8.4-10.2); Carbon Dioxide 18 mmol/L (22-30); Chloride 102 mmol/L (98-107); Glucose 85 mg/dL (74-99); Non-African American GFR(CKD) >90 (>60 ml/min/1.73 sqM); Potassium 3.7 mmol/L (3.5-5.1); Sodium 133 mmol/L (137-145); Total Protein 6.7 g/dL (6.3-8.2)
[2020-11-19] MEDS ORDERED: SODIUM CHLORIDE 0.9% 50 ML IVPB ONE (22:00)
[2020-11-19] MEDS ORDERED: BAMLANIVIMAB (EUA) 700 MG, ETESEVIMAB (EUA) 1,400 MG in SODIUM CHLORIDE 0.9% 50 ML IVPB ONE (22:00)
--- NOTE | 2020-11-19 22:15 | XR ---
EXAMINATION TYPE: XR chest 1V portable DATE OF EXAM: 11/19/2020 COMPARISON: 03/29/2014. HISTORY: Shortness of breath. TECHNIQUE: Single frontal view of the chest is obtained. FINDINGS: There is mild to moderate bibasilar streaky opacities. Pleural effusion, or pneumothorax s een. The cardiac silhouette size is within normal limits. The osseous structures are intact. IMPRESSION: Bibasilar opacities, concerning for infiltrates.
[2020-11-20 02:23] VITALS: BP 124/70; PULSE 84; RESP 18; TEMP 98
== END 2020-11-20 02:23 | disposition home or self-care (01) ==
LOC: EC 20:02
DX: O98.513 Other viral diseases complicating pregnancy, third trimester (principal); O99.343 Other mental disorders complicating pregnancy, third trimester; U07.1 COVID-19; F41.9 Anxiety disorder, unspecified; Z86.711 Personal history of pulmonary embolism; Z3A.35 35 weeks gestation of pregnancy
CPT/HCPCS: 36415; 93005; 80053; 84484; 85025; 85610; 85730; 81001; 71045; 99285; 96365; 96375; 96361; J2765; Q0245

== ENCOUNTER 2020-12-12 05:55 | Inpatient (IN) | payer OTHER ==
--- NOTE | 2020-12-09 06:31 | P.HPOB ---
History of Present Illness H&P Date: 12/09/20 Chief Complaint: Induction of labor due to history of pulmonary embolism This patient is a pleasant 40-year-old 3 para 1 female estimated date of confinement 12/27/2020 estimated gestational age 37-6/7 weeks presents for induction of labor secondary to multiple factors including history of pulmonary embolism in previous and anticoagulation therapy. Patient has been followed by myself and maternal- medicine throughout this recommendations are to proceed with delivery. Patient is been on Lovenox throughout the most recently changed over to heparin. Patient is is been complicated by a significant COVID infection at 35 weeks. Patient did receive BAM therapy for her Covid Patient is also advanced for maternal age and did have a normal genetic testing. evaluations included a cardiac echo which was normal. Review of Systems Genitourinary: Reports Menstruation: Reports amenorrhea Past Medical History Past Medical History: Pulmonary Embolus (PE) Additional Past Medical History / Comment(s): Pulmonary embolism in 2006. Patient's first was a spontaneous vaginal delivery. Second was a partial molar . Third was a vaginal delivery. Covid at 35 weeks. History of Any Multi-Drug Resistant Organisms: None Reported Past Surgical History: Cholecystectomy Additional Past Surgical History / Comment(s): Suction D&C Past Anesthesia/Blood Transfusion Reactions: No Reported Reaction Past Psychological History: Anxiety Smoking Status: Never smoker Past Alcohol Use History: None Reported Past Drug Use History: None Reported - Past Family History Mother Family Medical History: Asthma, Hypertension Medications and Allergies Home Medications Medication Instructions Recorded Confirmed Type Acetaminophen Tab [Tylenol] 1,000 mg PO Q6HR PRN 06/02/18 11/17/20 History Pnv No.95/Ferrous Fum/Folic AC 1 tab PO DAILY 06/02/18 11/17/20 History [ Multivitamin Tablet] Enoxaparin [Lovenox] 40 mg SQ DAILY 11/17/20 11/17/20 History Omeprazole [PriLOSEC] 10 mg PO BID 11/17/20 11/17/20 History Allergies Allergy/AdvReac Type Severity Reaction Status Date / Time adhesive tape AdvReac Itching Verified 11/19/20 20:25 codeine AdvReac Rash/Hives Verified 11/19/20 20:25 Exam - OBG Physical Exam Abdomen: bowel sounds normal, no diffuse tenderness, no bruit present, no guarding noted, no hepatomegaly, no splenomegaly, no mass Vulva: both: normal Vagina: normal moisture, no discharge Cervix: no lesion (Cervix in the office 2 cm dilated and soft and effaced.), no discharge Uterus: enlarged (Fundal height 41 cm) Results blood work shows she is A-, rubella indeterminate, RPR nonreactive, hepatitis B nonreactive, HIV is nonreactive, patient had a normal maternity T21 (46 XX), RhoGAM was given on October 12, ultrasounds have been normal including cardiac echo. Most recent growth ultrasound last week showed the baby estimated weight 8 lbs. 6 oz. B strep was negative Assessment and Plan Assessment: This is a pleasant 40-year-old 3 para 1 female estimated gestational age 37-6/7 weeks with history of pulmonary embolism previous on anticoagulant, elderly , and recent Covid infection. Recommendations are at this time are to proceed with induction of labor and delivery. Patient I discussed induction process and anticipate vaginal delivery. Patient was changed from Lovenox to heparin last week and discontinued her heparin on Saturday. I am going to order some coagulation factors on admission. She will resume anticoagulation after delivery. (1) 38 weeks gestation of Status: Acute Code(s): Z3A.38 - 38 WEEKS GESTATION OF SNOMED Code(s): 83553977 (2) History of pulmonary embolus (PE) Status: Acute Code(s): Z86.711 - PERSONAL HISTORY OF PULMONARY EMBOLISM SNOMED Code(s): 485015700 (3) Elderly multigravida Status: Acute Code(s): O09.529 - SUPERVISION OF ELDERLY MULTIGRAVIDA, UNSPECIFIED TRIMESTER SNOMED Code(s): 962295661 (4) Rh negative status during Status: Acute Code(s): O26.899 - OTH RELATED CONDITIONS, UNSPECIFIED TRIMESTER; Z67.91 - UNSPECIFIED BLOOD TYPE, RH NEGATIVE SNOMED Code(s): 718387226
[2020-12-12] MEDS ORDERED: OXYTOCIN 30 UNITS/500 ML NS 30 UNIT in SALINE 1 500ML.BAG IV SCH ×2 (06:12→14:36)
[2020-12-12] MEDS ORDERED: OXYTOCIN 10 UNIT/ML 1 ML VIAL IM PRN (06:12)
[2020-12-12] MEDS ORDERED: METHYLERGONOVINE 0.2 MG/ML 1 ML AMP IM PRN (06:12)
[2020-12-12] MEDS ORDERED: CARBOPROST TROMETHAMINE 250 MCG/ML 1 ML AMP IM PRN (06:12)
[2020-12-12] MEDS ORDERED: TERBUTALINE 1 MG/ML VIAL SQ PRN (06:12)
[2020-12-12] MEDS ORDERED: LIDOCAINE 0.5% (PF) 5 MG/ML (50 ML SDV) SQ PRN (06:12)
[2020-12-12 06:31] LABS: Basophils % (A) 0 %; Eosinophils # (A) 0.1 k/uL (0-0.7); Eosinophils % (A) 1 %; HCT 38.7 % (34.0-46.0); HGB 13.1 gm/dL (11.4-16.0); Lymphocytes # (A) 1.9 k/uL (1.0-4.8); Lymphocytes % (A) 21 %; MCH 30.4 pg (25.0-35.0); MCHC 33.8 g/dL (31.0-37.0); MCV 90.1 fL (80.0-100.0); Mean Platelet Volume 8.4; Monocytes # (A) 0.6 k/uL (0-1.0); Monocytes % (A) 6 %; Neutrophils # (A) 6.5 k/uL (1.3-7.7); Neutrophils % (A) 70 %; Platelet Count 201 k/uL (150-450); RBC 4.29 m/uL (3.80-5.40); RDW 14.1 % (11.5-15.5); WBC 9.3 k/uL (3.8-10.6)
[2020-12-12] MEDS: LACTATED RINGERS 1,000 ML IV SCH ×3 (06:31→11:19)
[2020-12-12 06:48] LABS: INR 0.8 (<1.2); Partial Thromboplastin Time 22.2 sec (22.0-30.0); Prothrombin Time 9.3 sec (9.0-12.0)
[2020-12-12] MEDS ORDERED: BUTORPHANOL 1 MG/ML 1 ML VIAL IV PRN (09:15)
[2020-12-12] MEDS ORDERED: ROPIVACAINE 5MG/ML 20ML VIAL ONE (10:53)
[2020-12-12] MEDS ORDERED: SODIUM CHLORIDE 0.9% 100 ML BAG ONE (10:53)
[2020-12-12] MEDS ORDERED: fentaNYL (PF) 50 MCG/ML 5 ML AMP ONE (10:53)
[2020-12-12] MEDS ORDERED: SIMETHICONE 80 MG CHEWABLE PO PRN (14:36)
[2020-12-12] MEDS ORDERED: LANOLIN CREAM 5 GM TUBE TOPICAL PRN (14:36)
[2020-12-12] MEDS ORDERED: BENZOCAINE/MENTHOL SPRAY 1 GM/SPRAY AEROSOL TOPICAL PRN (14:36)
[2020-12-12] MEDS ORDERED: diphenhydrAMINE 50 MG/ML 1 ML VIAL IVP PRN (14:36)
[2020-12-12] MEDS ORDERED: bisacodyL 10 MG SUPP RECTAL PRN (14:36)
[2020-12-12] MEDS ORDERED: ZOLPIDEM 5 MG TAB PO PRN (14:36)
[2020-12-12] MEDS ORDERED: HYDROCORTISONE 2.5% RECTAL CREAM 30 GM TUBE RECTAL PRN (14:36)
[2020-12-12] MEDS ORDERED: diphenhydrAMINE 25 MG CAP PO PRN (14:36)
[2020-12-12] MEDS: IBUPROFEN 600 MG TAB PO PRN (17:17)
--- NOTE | 2020-12-12 18:40 | P.PROBDLV ---
Vaginal Delivery Note - . Vaginal Delivery Note: Normal vaginal delivery viable female Apgars 9 and 9 delivery time is 1416 hrs. Please see dictated H&P for intimate details of this patient's admission. In brief summary this is a pleasant 40-year-old 4 para 2 female 37-6/7 weeks gestation admitted secondary to history of pulmonary embolism on anticoagulation. Patient is admitted she is 2 cm dilated. She has artificial rupture membranes for clear fluid. Coagulation factors are normal. Patient's labor is induced with Pitocin per protocol. She does get an epidural for pain control. Patient's epidural was very dense and she does have some position changes. Patient is without complaints and the nurse goes to check on her and findings that she is precipitously delivered in the bed. Patient apparently had a birthing ball between her legs and was feeling nothing but pressure and precipitously delivered. The nurse immediately clamped the cord. This is a vigorous viable female infant Apgars 9 and 9 delivery time is 1416 hrs. has spontaneous respiration and good cry and grossly appears normal. After delivery of the the placenta spontaneously delivers intact. Estimated blood loss is approximately 100 mL. There is a first-degree laceration that is repaired with 3-0 Vicryl in the usual fashion. Excellent reapproximation is noted. There are no complications. Infant and mother stable delivery room. We'll restart her heparin and 9:00 this evening.
[2020-12-12] MEDS: ACETAMINOPHEN TAB 325 MG TAB PO PRN (20:13)
[2020-12-12] MEDS: HEPARIN SODIUM,PORCINE/PF 5,000 UNIT/0.5 ML SYRINGE SQ SCH (21:10)
[2020-12-12] MEDS: SENNOSIDES-DOCUSATE SODIUM 1 EACH TAB PO PRN (21:10)
[2020-12-13] MEDS: IBUPROFEN 600 MG TAB PO PRN ×4 (00:01→20:47)
[2020-12-13] MEDS: ACETAMINOPHEN TAB 325 MG TAB PO PRN ×3 (03:57→16:25)
--- NOTE | 2020-12-13 06:37 | P.PNOBGVD ---
Subjective - Subjective Patient reports: Reports appetite normal, Reports voiding normally, Reports pain well controlled, Reports ambulating normally : doing well Objective - Latest Vital Signs Latest vital signs: Vital Signs Temp Pulse Resp BP Pulse Ox 12/13/20 00:00 97.7 F 89 16 115/68 96 12/12/20 20:00 98.5 F 94 16 101/68 12/12/20 16:36 97.7 F 88 16 112/57 12/12/20 16:06 85 16 124/67 12/12/20 15:36 76 16 133/78 12/12/20 15:21 95 16 116/69 12/12/20 15:06 76 16 137/72 12/12/20 14:51 86 16 104/57 12/12/20 14:36 83 16 95/53 Intake and Output 12/12/20 12/12/20 12/13/20 14:59 22:59 06:59 Intake Total 7.983 Output Total 100 Balance -92.017 Intake: Intake, IV Titration 7.983 Amount Oxytocin 30 Units/500 ml 7.983 Ns 30 unit In Saline 1 500ml.bag @ Per Protocol IV .Q0M [facility] Rx#:[id number] Output: Urine 100 Other: # Voids 1 1 - Exam Lungs: bilateral: normal Chest: Normal S1, Normal S2 Extremities: Present: normal Abdomen: Present: normal appearance, soft Uterus: Present: normal, firm Assessment and Plan Assessment: day #1. Patient is resting without complaints. Vital signs are stable she's afebrile. Uterus is firm nontender and she is having normal lochia. Patient was restarted on her heparin last evening is having no bleeding problems at this time. I impression this is a normal course. Plan is to continue subcu heparin twice a day, encourage ambulation, and most likely discharge home tomorrow. (1) 38 weeks gestation of Current Visit: No Status: Acute Code(s): Z3A.38 - 38 WEEKS GESTATION OF SNOMED Code(s): 20483588 (2) History of pulmonary embolus (PE) Current Visit: No Status: Acute Code(s): Z86.711 - PERSONAL HISTORY OF PULMONARY EMBOLISM SNOMED Code(s): 674731246 (3) Elderly multigravida Current Visit: No Status: Acute Code(s): O09.529 - SUPERVISION OF ELDERLY MULTIGRAVIDA, UNSPECIFIED TRIMESTER SNOMED Code(s): 632965210 (4) Rh negative status during Current Visit: No Status: Acute Code(s): O26.899 - OTH RELATED CONDITIONS, UNSPECIFIED TRIMESTER; Z67.91 - UNSPECIFIED BLOOD TYPE, RH NEGATIVE SNOMED Code(s): 332135544
[2020-12-13 07:48] LABS: Basophils % (A) 0 %; Eosinophils # (A) 0.1 k/uL (0-0.7); Eosinophils % (A) 1 %; HCT 34.8 % (34.0-46.0); HGB 11.8 gm/dL (11.4-16.0); Lymphocytes # (A) 1.9 k/uL (1.0-4.8); Lymphocytes % (A) 21 %; MCH 30.9 pg (25.0-35.0); MCHC 33.9 g/dL (31.0-37.0); MCV 90.9 fL (80.0-100.0); Monocytes # (A) 0.6 k/uL (0-1.0); Monocytes % (A) 7 %; Neutrophils % (A) 69 %; Platelet Count 160 k/uL (150-450); RBC 3.83 m/uL (3.80-5.40); RDW 13.9 % (11.5-15.5); WBC 8.8 k/uL (3.8-10.6)
[2020-12-13] MEDS: HEPARIN SODIUM,PORCINE/PF 5,000 UNIT/0.5 ML SYRINGE SQ SCH ×2 (08:26→20:47)
[2020-12-13] MEDS: SENNOSIDES-DOCUSATE SODIUM 1 EACH TAB PO PRN (20:47)
[2020-12-14] MEDS: ACETAMINOPHEN TAB 325 MG TAB PO PRN ×2 (00:14→07:28)
[2020-12-14] MEDS: IBUPROFEN 600 MG TAB PO PRN (03:27)
--- NOTE | 2020-12-14 06:02 | P.PNOBGVD ---
Subjective - Subjective Patient reports: Reports appetite normal, Reports voiding normally, Reports pain well controlled, Reports ambulating normally : doing well Objective - Latest Vital Signs Latest vital signs: Vital Signs Temp Pulse Resp BP Pulse Ox 12/14/20 00:00 98.3 F 85 16 137/67 12/13/20 16:00 98 F 90 15 110/79 96 12/13/20 08:00 98 F 98 15 100/70 97 - Exam Lungs: bilateral: normal Chest: Normal S1, Normal S2 Extremities: Present: normal Abdomen: Present: normal appearance, soft Uterus: Present: normal, firm Assessment and Plan Assessment: Post day #2. Patient is resting without complaints. Patient is tolerating the heparin without significant bleeding. Vital signs are stable and she is afebrile. My impression is a normal post course. Plan is to discharge home later today. (1) 38 weeks gestation of Current Visit: No Status: Acute Code(s): Z3A.38 - 38 WEEKS GESTATION OF SNOMED Code(s): 37569861 (2) History of pulmonary embolus (PE) Current Visit: No Status: Acute Code(s): Z86.711 - PERSONAL HISTORY OF PULMONARY EMBOLISM SNOMED Code(s): 055406883 (3) Elderly multigravida Current Visit: No Status: Acute Code(s): O09.529 - SUPERVISION OF ELDERLY MULTIGRAVIDA, UNSPECIFIED TRIMESTER SNOMED Code(s): 808223374 (4) Rh negative status during Current Visit: No Status: Acute Code(s): O26.899 - OTH RELATED CONDITIONS, UNSPECIFIED TRIMESTER; Z67.91 - UNSPECIFIED BLOOD TYPE, RH NEGATIVE SNOMED Code(s): 183239575
--- NOTE | 2020-12-14 06:04 | P.DS ---
Providers Date of admission: 12/12/20 05:55 Expected date of discharge: 12/14/20 Attending physician: Esau Mike Primary care physician: Stated None - Discharge Diagnosis(es) (1) 38 weeks gestation of Current Visit: No Status: Acute (2) History of pulmonary embolus (PE) Current Visit: No Status: Acute (3) Elderly multigravida Current Visit: No Status: Acute (4) Rh negative status during Current Visit: No Status: Acute Hospital Course: Please see dictated H&P for intimate details of this patient's admission. Brief summary is a pleasant 40-year-old 4 para 2 female 37-6/7 weeks gestation who is admitted to labor and delivery for induction of labor. Patient quickly goes on to have a vaginal delivery of viable female . Please see dictated delivery note. the patient is placed on subcu heparin due to her history of pulmonary embolism. She does well and on day #2 silk to be stable for discharge home follow up with me in 6 weeks. Procedures: Induction of labor and normal vaginal delivery Patient Condition at Discharge: Good Plan - Discharge Summary New Discharge Prescriptions: New Ibuprofen [Motrin] 600 mg PO Q6H PRN 30 Days tab PRN Reason: Pain No Action Pnv No.95/Ferrous Fum/Folic AC [ Multivitamin Tablet] 1 tab PO DAILY Heparin Sodium,Porcine [Heparin Sodium] 5,000 unit SQ Q12HR Omeprazole [PriLOSEC] 10 mg PO BID Discharge Medication List Pnv No.95/Ferrous Fum/Folic AC [ Multivitamin Tablet] 1 tab PO DAILY 06/02/18 [History] Omeprazole [PriLOSEC] 10 mg PO BID 11/17/20 [History] Heparin Sodium,Porcine [Heparin Sodium] 5,000 unit SQ Q12HR 12/12/20 [History] Ibuprofen [Motrin] 600 mg PO Q6H PRN 30 Days tab 12/14/20 [Rx]
[2020-12-14] MEDS: SENNOSIDES-DOCUSATE SODIUM 1 EACH TAB PO PRN (07:28)
[2020-12-14 08:32] VITALS: BP 100/70; PULSE 89; RESP 18; TEMP 98.2
[2020-12-14] MEDS: HEPARIN SODIUM,PORCINE/PF 5,000 UNIT/0.5 ML SYRINGE SQ SCH (08:37)
== END 2020-12-14 10:10 | disposition home or self-care (01) | DRG 807 ==
LOC: 4FBP 05:55
PROVIDERS: ADMIT Obstetrics & Gynecology; ATTEND Obstetrics & Gynecology
PROC: 10E0XZZ Delivery of Products of Conception, External Approach (ICD-10-PCS; principal; 2020-12-12)
PROC: 0HQ9XZZ Repair Perineum Skin, External Approach (ICD-10-PCS; 2020-12-12)
DX: O62.3 Precipitate labor (principal); Z37.0 Single live birth; O26.893 Other specified pregnancy related conditions, third trimester; O70.0 First degree perineal laceration during delivery; Z3A.37 37 weeks gestation of pregnancy; Z67.91 Unspecified blood type, Rh negative; Z79.01 Long term (current) use of anticoagulants; Z82.49 Family history of ischemic heart disease and other diseases of the circulatory system; Z82.5 Family history of asthma and other chronic lower respiratory diseases; Z86.16 Personal history of COVID-19; Z86.711 Personal history of pulmonary embolism
CPT/HCPCS: 85025; 85610; 85730; 86850; 86900; 86901; 88307

== ENCOUNTER → 2022-11-05 | Outpatient (CLI) | payer OTHER ==
--- NOTE | 2022-11-05 11:55 | XR ---
EXAMINATION TYPE: XR foot complete RT DATE OF EXAM: 11/05/2022 CLINICAL HISTORY: pain TECHNIQUE: Frontal, lateral and oblique images of the right foot are obtained. COMPARISON: None. FINDINGS: There is no acute fracture/dislocation evident. The joint spaces appear within normal verde its. The overlying soft tissue appears unremarkable. IMPRESSION: There is no acute fracture or dislocation. ICD 10 NO FRACTURE, INITIAL EVALUATION
--- NOTE | 2022-11-05 11:58 | XR ---
EXAMINATION TYPE: XR ankle complete RT DATE OF EXAM: 11/05/2022 COMPARISON: NONE HISTORY: Pain TECHNIQUE: Frontal, lateral and oblique images of the right ankle are obtained. COMPARISON: None. FINDINGS: There is no acute fracture/dislocation evident. The joint spaces appear within normal verde its. The overlying soft tissue appears unremarkable. IMPRESSION: There is no acute fracture or dislocation seen.
== END | disposition home or self-care (01) ==
LOC: RADXRMAIN 10:41
PROVIDERS: ATTEND Physician Assistant
DX: M25.571 Pain in right ankle and joints of right foot (principal)

== ENCOUNTER 2023-07-20 09:39 | Emergency (ER) | payer OTHER ==
[2023-07-20] MEDS ORDERED: KETOROLAC 15 MG/ML 1 ML VIAL IVP STA (10:09)
[2023-07-20] MEDS ORDERED: ACETAMINOPHEN TAB 500 MG TAB PO STA (10:09)
[2023-07-20] MEDS ORDERED: IPRATROPIUM-ALBUTEROL 3 ML NEB INHALATION STA (10:09)
[2023-07-20] MEDS ORDERED: SODIUM CHLORIDE 0.9% 1,000 ML IV ONE (10:09)
[2023-07-20] MEDS ORDERED: ONDANSETRON 4 MG/2 ML VIAL IVP STA (10:10)
--- NOTE | 2023-07-20 10:12 | ED ---
General Adult HPI - General Chief complaint: Nausea/Vomiting/Diarrhea Stated complaint: nausea, coughing dizzy Time Seen by Provider: 07/20/23 09:57 Source: patient, RN notes reviewed, old records reviewed Mode of arrival: wheelchair Limitations: no limitations - History of Present Illness Initial comments: 43-year-old female presents for evaluation of cough, nausea vomiting and diarrhea. Patient tested positive for influenza 4 days prior she has been sick for 6 days total. She is otherwise healthy. She's had severe cough and chest tightness. Cough is dry. She's also had vomiting and diarrhea which she associates with the Tamiflu that was prescribed to her at urgent care. - Related Data Home Medications Medication Instructions Recorded Confirmed Pnv No.95/Ferrous Fum/Folic AC 1 tab PO DAILY 06/02/18 12/12/20 [ Multivitamin Tablet] Omeprazole [PriLOSEC] 10 mg PO BID 11/17/20 12/12/20 Heparin Sodium,Porcine (1 ml) 5,000 unit SQ Q12HR 12/12/20 12/12/20 [Heparin Sodium] Previous Rx's Medication Instructions Recorded Ibuprofen [Motrin] 600 mg PO Q6H PRN 30 Days tab 12/14/20 Albuterol Inhaler [Ventolin Hfa 1 - 2 puff INHALATION Q4HR PRN #1 07/20/23 Inhaler] each Azithromycin [Zithromax Z Pack] 1 tab PO DIRECTED #6 tab 07/20/23 methylPREDNISolone Dose Pack 4 mg PO DIRECTED #21 packet 07/20/23 [Medrol Dose Pack] Allergies Allergy/AdvReac Type Severity Reaction Status Date / Time adhesive tape AdvReac Itching Verified 07/20/23 09:51 codeine AdvReac Rash/Hives Verified 07/20/23 09:51 Review of Systems ROS Statement: Those systems with pertinent positive or pertinent negative responses have been documented in the HPI. ROS Other: All systems not noted in ROS Statement are negative. Past Medical History Past Medical History: Pulmonary Embolus (PE) Additional Past Medical History / Comment(s): Pulmonary embolism in 2006. Patient's first was a spontaneous vaginal delivery. Second was a partial molar . Third was a vaginal delivery. Covid at 35 weeks. History of Any Multi-Drug Resistant Organisms: None Reported Past Surgical History: Cholecystectomy Additional Past Surgical History / Comment(s): Suction D&C Past Anesthesia/Blood Transfusion Reactions: No Reported Reaction Past Psychological History: Anxiety Smoking Status: Never smoker Past Alcohol Use History: Occasional Past Drug Use History: None Reported - Past Family History Mother Family Medical History: Asthma, Hypertension General Exam Limitations: no limitations General appearance: alert Head exam: Present: atraumatic, normocephalic Eye exam: Present: normal appearance, PERRL Neck exam: Present: normal inspection. Absent: tenderness, meningismus Respiratory exam: Present: other (Bronchospastic cough with good air entry) Cardiovascular Exam: Present: normal rhythm, tachycardia GI/Abdominal exam: Present: soft. Absent: distended Extremities exam: Present: normal inspection, normal capillary refill Neurological exam: Present: alert, oriented X3 Psychiatric exam: Present: normal affect, normal mood Skin exam: Present: warm, dry, intact. Absent: cyanosis, diaphoretic Course Vital Signs 07/20/23 07/20/23 07/20/23 09:47 10:29 11:00 Temperature 98.0 F Pulse Rate 107 H 120 H Respiratory 20 26 H Rate Blood Pressure 204/165 125/70 124/91 O2 Sat by Pulse 96 97 99 Oximetry 07/20/23 11:30 Temperature Pulse Rate 113 H Respiratory Rate Blood Pressure 126/81 O2 Sat by Pulse 98 Oximetry Medical Decision Making - Medical Decision Making Was pt. sent in by a medical professional or institution ([facility], [employer], urgent care, hospital, or fdc...) When possible be specific @ -No Did you speak to anyone other than the patient for history (EMS, parent, family, police, friend...)? What history was obtained from this source @ -No Did you review nursing and triage notes (agree or disagree)? Why? @ -I reviewed and agree with nursing and triage notes Were old charts reviewed (outside hosp., previous admission, EMS record, old EKG, old radiological studies, urgent care reports/EKG's, fdc records)? Report findings @ -No old charts were reviewed Differential Diagnosis (chest pain, altered mental status, abdominal pain women, abdominal pain men, vaginal bleeding, weakness, fever, dyspnea, syncope, headache, dizziness, GI bleed, back pain, seizure, CVA, palpatations, mental health, musculoskeletal)? Influenza, pneumonia, dehydration EKG interpreted by me (3pts min.). @ -As above X-rays interpreted by me (1pt min.). @ -Single view chest x-ray negative for large consolidated pneumonia, interpreted by radiology as retrocardiac atelectasis versus infiltrate] CT interpreted by me (1pt min.). @ -None done U/S interpreted by me (1pt. min.). @ -None done What testing was considered but not performed or refused? (CT, X-rays, U/S, la bs)? Why? @ -None What meds were considered but not given or refused? Why? @ -None Did you discuss the management of the patient with other professionals (professionals i.e. , PA, [employer], lab, RT, psych nurse, socially responsible investment adviser, transitions manager, teacher, staff air tactical officer, watch case polisher)? Give summary @ -No Was smoking cessation discussed for >3mins.? @ -No Was critical care preformed (if so, how long)? @ -No Were there social determinants of health that impacted care today? How? (Homelessness, low income, unemployed, alcoholism, drug addiction, transportation, low edu. Level, literacy, decrease access to med. care, long-term, rehab)? @ -No Was there de-escalation of care discussed even if they declined (Discuss DNR or withdrawal of care, Hospice)? DNR status @ -No What co-morbidities impacted this encounter? (DM, HTN, Smoking, COPD, CAD, Cancer, CVA, ARF, Chemo, Hep., AIDS, mental health diagnosis, sleep apnea, morbid obesity)? @ -None Was patient admitted / discharged? Hospital course, mention meds given and route, prescriptions, significant lab abnormalities, going to OR and other pertinent info. @ -[43-year-old female who did test positive for influenza and has had symptoms for the past 6 days she had been treated with Tamiflu however this caused more vomiting. Patient is tachycardic, no respiratory distress, no hypoxia. Patient receives IV fluid, Toradol, Tylenol with slight improvement in symptoms. She has a bronchospastic cough and concern for possible infiltrate a be related to influenza versus secondary infection. She will be treated with azithromycin, Medrol Dosepak and albuterol. She will maintain hydration at home. Undiagnosed new problem with uncertain prognosis? @ -No Drug Therapy requiring intensive monitoring for toxicity (Heparin, Nitro, Insulin, Cardizem)? @ -No Were any procedures done? @ -No Diagnosis/symptom? @ Influenza A Acute, or Chronic, or Acute on Chronic? @ -[acute Uncomplicated (without systemic symptoms) or Complicated (systemic symptoms)? @ -default] Side effects of treatment? @ -[No] Exacerbation, Progression, or Severe Exacerbation? @ -[No] Poses a threat to life or bodily function? How? (Chest pain, [place], [place], pneumonia, PE, COPD, DKA, ARF, appy, cholecystitis, CVA, Diverticulitis, Homicidal, Suicidal, threat to staff... and all critical care pts) @ -[LOw risk at this time - Lab Data Result diagrams: 07/20/23 10:07/20/23 10:09 Lab Results 07/20/23 07/20/23 Range/Units 10: 10:09 WBC 4.4 (3.8-10.6) k/uL RBC 5.19 (3.80-5.40) m/uL Hgb 15.9 (11.4-16.0) gm/dL Hct 46.3 H (34.0-46.0) % MCV 89.2 (80.0-100.0) fL MCH 30.7 (25.0-35.0) pg MCHC 34.4 (31.0-37.0) g/dL RDW 12.4 (11.5-15.5) % Plt Count 132 L (150-450) k/uL MPV 8.3 Neutrophils % 66 % Lymphocytes % 23 % Monocytes % 8 % Eosinophils % 0 % Basophils % 0 % Neutrophils # 2.9 (1.3-7.7) k/uL Lymphocytes # 1.0 (1.0-4.8) k/uL Monocytes # 0.3 (0-1.0) k/uL Eosinophils # 0.0 (0-0.7) k/uL Basophils # 0.0 (0-0.2) k/uL Sodium 135 L (137-145) mmol/L Potassium 3.9 (3.5-5.1) mmol/L Chloride 96 L (98-107) mmol/L Carbon Dioxide 22 (22-30) mmol/L Anion Gap 17 mmol/L BUN 17 (7-17) mg/dL Creatinine 0.54 (0.52-1.04) mg/dL Est GFR (CKD-EPI)AfAm >90 (>60 ml/min/1.73 sqM) Est GFR (CKD-EPI)NonAf >90 (>60 ml/min/1.73 sqM) Glucose 98 (74-99) mg/dL Calcium 9.5 (8.4-10.2) mg/dL Total Bilirubin 0.4 (0.2-1.3) mg/dL AST 59 H (14-36) U/L ALT 33 (4-34) U/L Alkaline Phosphatase 108 (38-126) U/L Total Protein 7.3 (6.3-8.2) g/dL Albumin 4.5 (3.5-5.0) g/dL Disposition Clinical Impression: Influenza A Disposition: HOME SELF-CARE Condition: Fair Instructions (If sedation given, give patient instructions): Acute Nausea and Vomiting (ED), Influenza (ED) Prescriptions: methylPREDNISolone Dose Pack [Medrol Dose Pack] 4 mg PO DIRECTED #21 packet Albuterol Inhaler [Ventolin Hfa Inhaler] 1 - 2 puff INHALATION Q4HR PRN #1 each PRN Reason: Shortness Of Breath Azithromycin [Zithromax Z Pack] 1 tab PO DIRECTED #6 tab Is patient prescribed a controlled substance at d/c from ED?: No Referrals: Tremayne Mendiola MD [Primary Care Provider] - 1-2 days Time of Disposition: 12:31
[2023-07-20 10:13] VITALS: TEMP 98
[2023-07-20 10:40] LABS: Basophils % (A) 0 %; Eosinophils % (A) 0 %; HCT 46.3 % (34.0-46.0); HGB 15.9 gm/dL (11.4-16.0); Lymphocytes % (A) 23 %; MCH 30.7 pg (25.0-35.0); MCHC 34.4 g/dL (31.0-37.0); MCV 89.2 fL (80.0-100.0); Mean Platelet Volume 8.3; Monocytes # (A) 0.3 k/uL (0-1.0); Monocytes % (A) 8 %; Neutrophils # (A) 2.9 k/uL (1.3-7.7); Neutrophils % (A) 66 %; Platelet Count 132 k/uL (150-450); RBC 5.19 m/uL (3.80-5.40); RDW 12.4 % (11.5-15.5); WBC 4.4 k/uL (3.8-10.6)
[2023-07-20 10:51] LABS: ALT 33 U/L (4-34); AST 59 U/L (14-36); African American GFR (CKD) >90 (>60 ml/min/1.73 sqM); Albumin 4.5 g/dL (3.5-5.0); Alkaline Phosphatase 108 U/L (38-126); Anion Gap 17 mmol/L; Blood Urea Nitrogen 17 mg/dL (7-17); Calcium 9.5 mg/dL (8.4-10.2); Carbon Dioxide 22 mmol/L (22-30); Chloride 96 mmol/L (98-107); Glucose 98 mg/dL (74-99); Non-African American GFR(CKD) >90 (>60 ml/min/1.73 sqM); Potassium 3.9 mmol/L (3.5-5.1); Sodium 135 mmol/L (137-145); Total Bilirubin 0.4 mg/dL (0.2-1.3); Total Protein 7.3 g/dL (6.3-8.2)
[2023-07-20] MEDS ORDERED: ALBUTEROL HFA INHALER INHALATION STA (11:05)
--- NOTE | 2023-07-20 11:05 | XR ---
EXAMINATION TYPE: XR chest 1V portable DATE OF EXAM: 07/20/2023 Comparison: 11/17/2021 Clinical History: 43-year-old female cough Findings: Heart normal size. Aorta and pulmonary vasculature within normal limits. Mild patchy retrocardiac den sity. Impression: Some mild patchy retrocardiac atelectasis versus early infiltrate.
[2023-07-20] MEDS ORDERED: SODIUM CHLORIDE 0.9% 500 ML 500 ML IV ONE (11:46)
[2023-07-20 14:40] VITALS: BP 121/76; PULSE 89; RESP 20
== END 2023-07-20 14:12 | disposition home or self-care (01) ==
LOC: EC 09:39
DX: J10.1 Influenza due to other identified influenza virus with other respiratory manifestations (principal); Z86.59 Personal history of other mental and behavioral disorders; Z86.16 Personal history of COVID-19; Z88.5 Allergy status to narcotic agent; Z91.09 Other allergy status, other than to drugs and biological substances
CPT/HCPCS: 36415; 94640; 80053; 85025; 71045; 99284; 96374; 96375; 96361 ×2; J2405; J1885

== ENCOUNTER → 2023-12-03 | Outpatient (CLI) | payer OTHER ==
--- NOTE | 2023-12-05 08:10 | XR ---
EXAMINATION TYPE: XR knee 4V LT DATE OF EXAM: 12/03/2023 CLINICAL HISTORY: pain TECHNIQUE: Three views of the left knee are obtained. Additional patellar sunrise view obtained. COMPARISON: None. FINDINGS: There is no acute fracture/dislocation. The tri-compartment joint spaces appear within no rmal limits. The overlying soft tissue appears unremarkable. IMPRESSION: There is no acute fracture or dislocation ICD 10 NO FRACTURE, INITIAL EVALUATION
--- NOTE | 2023-12-05 08:11 | XR ---
EXAMINATION TYPE: XR Hip Complete LT DATE OF EXAM: 12/03/2023 CLINICAL HISTORY: pain TECHNIQUE: AP and frogleg views of the left hip are obtained. COMPARISON: None. FINDINGS: There is no acute fracture/dislocation evident. The joint space appears within normal li mits. The overlying soft tissue appears unremarkable. IMPRESSION: 1. There is no acute fracture or dislocation.ICD 10 NO FRACTURE, INITIAL EVALUATION
--- NOTE | 2023-12-05 08:12 | XR ---
EXAMINATION TYPE: XR lumbosacral spine min 4V DATE OF EXAM: 12/03/2023 CLINICAL HISTORY: pain COMPARISON: 04/12/2020 TECHNIQUE: Frontal, lateral, and oblique images of the lumbar spine are obtained. FINDINGS: There are 5 lumbar type vertebral bodies identified. The lumbar spine shows satisfactory alignment without evidence of acute fracture or dislocation. Vertebral body heights are within normal limits. Moderate to severe multilevel degenerative disc space narrowing with spondylosis and facet j oint arthropathy. The overlying soft tissue appears unremarkable. IMPRESSION: No acute fracture or dislocation is seen in the lumbar spine.ICD 10 NO FRACTURE, INITIAL EVALUATION
== END | disposition home or self-care (01) ==
LOC: RADXRMAIN 16:13
PROVIDERS: ATTEND Physician Assistant
DX: M25.552 Pain in left hip (principal); M25.562 Pain in left knee
CPT/HCPCS: 72110; 73502